=== PATIENT | male | born 1975 | race Caucasian/White ===

== ENCOUNTER 2019-11-10 08:06 | Emergency (ER) | payer OTHER ==
[2019-11-10] MEDS ORDERED: Fentanyl 100 MCG/2 ML VIAL ONE (08:26)
[2019-11-10] MEDS ORDERED: Ondansetron PF 4 MG/2 ML Vial ONE (08:26)
[2019-11-10] MEDS ORDERED: Ketorolac Tromethamine 30 MG/ML VIAL ONE (08:26)
[2019-11-10 08:33] LABS: #Eosinphils 0.1 thou/uL (0.0-0.7); #Lymphocytes 1.3 thou/uL (1.20-3.40); #Monocytes 0.7 thou/uL (0.11-0.59); #Neutrophils 5.3 thou/uL (1.40-6.50); %Basophils 0.2 % (0.0-1.0); %Eosinophils 0.8 % (0.0-10.0); %Lymphocytes 17.8 % (21.0-51.0); %Monocytes 9.3 % (0.0-10.0); Hemoglobin 16.6 g/dL (14.0-18.0); Mean Corpuscular HGB CONC 33.3 g/dL (32.0-36.0); Mean Corpuscular Volume 92.9 fL (78.0-98.0); Platelet Count 240 thou/uL (130-400); RBC Distribution Width 11.3 % (11.5-14.5); Red Blood Cell (RBC) Count 5.35 mill/uL (4.70-6.10); White Blood Cell (WBC) Count 7.4 thou/uL (4.8-10.8)
[2019-11-10 08:50] LABS: ALT (SGPT) 38 U/L (8-55); AST (SGOT) 27 U/L (5-34); Albumin 4.3 g/dL (3.5-5.0); Alkaline Phosphatase 92 U/L (40-110); Anion Gap 11 mmol/L (10-20); BUN (Urea Nitrogen) 13 mg/dL (8.9-20.6); Bilirubin, Total 0.5 mg/dL (0.2-1.2); CK (CPK) 87 U/L (30-200); Calc. Creatinine Clearance 0 mL/min (70-130); Calcium 8.9 mg/dL (7.8-10.44); Carbon Dioxide 27 mmol/L (22-29); Chloride 100 mmol/L (98-107); Estimated GFR-MDRD 85; Globulin 2.9 g/dL (2.4-3.5); Glucose 107 mg/dL (70-105); Lipase 26 U/L (8-78); Potassium 3.9 mmol/L (3.5-5.1); Protein, Total 7.2 g/dL (6.0-8.3); Sodium 134 mmol/L (136-145)
[2019-11-10 09:18] LABS: Bilirubin Negative (Negative); Blood, Urine Negative (Negative); Clarity Clear (Clear); Glucose, Urine (Dipstick) Normal (Negative); Leukocyte Negative Leu/uL (Negative); Nitrite Negative (Negative); Protein, Urine (Dipstick) Negative (Neg-Trace); Urobilinogen Normal mg/dL (Less than 2)
--- NOTE | 2019-11-10 09:23 | CT ---
CT of abdomen and pelvis: 11/10/2019 COMPARISON: 05/04/2012 HISTORY: Right flank pain TECHNIQUE: Axial CT imaging at 5 mm intervals from lung bases through pubic symphysis without contras t. Coronal reformatted imaging obtained. FINDINGS: Lack of contrast media limits assessment of the viscera, bowel, vascular structures, and fo r lymphadenopathy. Imaged lung bases unremarkable. No free intraperitoneal air. There is a tiny hypodensity within the s uperior aspect of the right lobe of the liver measuring 7-8 mm, similar when compared to prior imaging. Gallbladder, spleen, pancreas, and adrenal glands unremarkable. No evidence for nephrolithiasis or obstructive uropathy is seen on the left. On the right there is pe rinephric stranding with mild right-sided hydronephrosis and hydroureter. There is an obstructing stone within the distal right ureter at the level of the right ureterovesicular junction, best seen o n axial image 84 and coronal image 87 which measures approximately 3 mm. No evidence for bowel inflammatory change or obstruction. The appendix is unremarkable. No acute osseous abnormality. No lytic or blastic bone lesion. IMPRESSION: Obstructive uropathy on the right secondary to a distal 3 mm obstructing stone within the right ureter in the region of the ureterovesicular junction.
[2019-11-10] MEDS ORDERED: HYDROcodone/Acetaminophen 10/325 mg Tablet ONE (09:55)
== END 2019-11-10 10:02 | disposition home or self-care (01) ==
LOC: ERS 08:06
DX: N13.2 Hydronephrosis with renal and ureteral calculous obstruction (principal); R11.2 Nausea with vomiting, unspecified
CPT/HCPCS: 36415; 74176; 80053; 81003; 82550; 83690; 85025; 96361; 96374; 96375; J1885; J2405; J3010

== ENCOUNTER 2019-12-09 12:45 | Outpatient (CLI) | payer OTHER ==
--- NOTE | 2019-12-09 13:11 | ULT ---
US Renal Bilateral STANDARD HISTORY: Renal calculi COMPARISON: CT stone protocol of 11/10/2019 FINDINGS: The right kidney measures 11.8 cm in length and the left kidney measures 12 cm in length. No focal ma ss or hydronephrosis seen on either side. No shadowing calculi are noted. Cortical echogenicity and thickness is normal. The prevoid bladder volume measures 62 cc with complete emptying on the post void images. The bladder is grossly unremarkable. IMPRESSION: Normal exam.
--- NOTE | 2019-12-09 13:14 | RAD ---
XR Abdomen 1 View/KUB HISTORY: Ureteral calculi. Frequency of micturition COMPARISON: None. FINDINGS: No suspicious calculi are seen. The bowel gas pattern is unremarkable. There are pelvic phl eboliths.
== END 2019-12-09 12:46 | disposition home or self-care (01) ==
LOC: BICULT 12:45
PROVIDERS: ATTEND Urology
DX: N20.1 Calculus of ureter (principal); R35.0 Frequency of micturition
CPT/HCPCS: 36415; 74018; 76770; G0103

== ENCOUNTER 2023-01-03 10:20 | Outpatient (CLI) | payer BC | END 2023-01-03 10:21 | disposition home or self-care (01) | LOC: RAD 10:20 | PROVIDERS: ATTEND Family Medicine | DX: M79.671 Pain in right foot (principal) ==

== ENCOUNTER 2025-06-30 12:13 | Outpatient (CLI) | payer BC | END 2025-06-30 12:14 | disposition home or self-care (01) | LOC: BICRAD 12:13 | PROVIDERS: ATTEND Family Medicine | DX: J06.9 Acute upper respiratory infection, unspecified (principal); R91.8 Other nonspecific abnormal finding of lung field | CPT/HCPCS: 71046 ==